=== PATIENT | male | born 1940 | race Caucasian/White ===

== ENCOUNTER 2016-10-08 08:53 | Outpatient (CLI) ==
[2015-05-13 17:48] VITALS: BMI 32.3
[2016-10-08 09:06] LABS: BASOPHILS % (AUTO) 0.5 % (0.0-3.0); EOSINOPHILS # (AUTO) 0.3 K/ul (0.0-0.7); EOSINOPHILS % (AUTO) 5.7 % (0.0-7.0); HEMATOCRIT 41.4 % (42.0-52.0); HEMOGLOBIN 12.5 g/dl (14.0-18.0); IMMATURE GRANULOCYTE % (AUTO) 0.3 % (0.0-5.0); LYMPHOCYTES # (AUTO) 1.3 K/uL (0.60-3.4); MEAN CORPUSCULAR HEMOGLOBIN 24.8 pg (27.0-31.0); MEAN CORPUSCULAR HGB CONC 30.2 (31.8-35.4); MEAN CORPUSCULAR VOLUME 82.1 fl (80.0-94.0); MONOCYTES # (AUTO) 0.4 K/uL (0.4-2.0); MONOCYTES % (AUTO) 6.7 (0-10); NEUTROPHILS % (AUTO) 65.8; PLATELET COUNT 195 10^3/uL (140-440); RED BLOOD COUNT 5.04 10^6/ul (4.70-6.10)
== END 2016-10-08 08:54 | disposition home or self-care (01) ==
LOC: LAB 08:53
PROVIDERS: ATTEND Internal Medicine
DX: D64.9 Anemia, unspecified (principal)
CPT/HCPCS: 36415; 85025

== ENCOUNTER 2018-04-16 12:52 | Outpatient (CLI) ==
[2015-05-13 17:48] VITALS: BMI 32.3
--- NOTE | 2018-04-18 15:40 | HOLTER ---
PATIENT INFORMATION AND COMMENTS Attending Physician: DR. RADHA GARCIA Indications: ATRIAL FIBRILLATION/FLUTTER __ Patient Medications: ACYCLOVIR, APIXABAN, IRON, GABAPENTIN, LISINOPRIL, METFORMIN, MINOCYCLINE, PANOPRAZOLE, BETAPACE __ Pre-procedure Summary: Protocol: Standard Heart Rate Started: 04/16/18 1329 Minimum: 67 BPM Weight: 247 LBS Ended: 04/17/18 1329 Maximum: 116 BPM Height: 72" Duration: 24 HOURS Average: 84 BPM _ INTERPRETATIONS/OBSERVATIONS: 1. BASIC RHYTHM: SINUS, RATE 65 BPM TO 120 BPM, AVERAGE 84 BPM 2. RARE PAC'S AND PVC'S 3. TWO TO THREE SHORT RUNS OF SVT CONSISTING OF 4 TO [address]-T WAVE CHANGES FROM BASELINE 5. ACTIVITY LOG NOT MAINTAINED MTDD
== END 2018-04-16 12:53 | disposition home or self-care (01) ==
LOC: CAR 12:52
PROVIDERS: ATTEND Internal Medicine
DX: I48.92 Unspecified atrial flutter (principal)
CPT/HCPCS: 93005; 93010; 93227

== ENCOUNTER 2018-04-28 11:50 | Outpatient (CLI) ==
[2015-05-13 17:48] VITALS: BMI 32.3
--- NOTE | 2018-04-28 13:20 | US ---
EXAM: Bilateral lower extremity venous Doppler History: Bilateral lower extremity pain and edema. Technique: Multiple sonographic images through the bilateral lower extremities were obtained. Color duplex Doppler was used to interrogate vascular flow. Findings: The bilateral common femoral, greater saphenous, profunda, superficial femoral, popliteal, peroneal, posterior tibial and anterior tibial veins demonstrate spontaneous flow with normal compre ssion and normal augmentation. Impression: No sonographic evidence for deep venous thrombosis
== END 2018-04-28 11:51 | disposition home or self-care (01) ==
LOC: RAD 11:50
PROVIDERS: ATTEND Internal Medicine
DX: M79.605 Pain in left leg (principal); M79.604 Pain in right leg; L53.9 Erythematous condition, unspecified